=== PATIENT | female | born 1995 | race African-American/Black ===

== ENCOUNTER 2018-02-19 20:03 | Emergency (ER) | payer SELFPAY ==
[2018-02-19 21:27] VITALS: TEMP 96.6; O2SAT 100
[2018-02-19 21:39] VITALS: BP 109/71; PULSE 92; RESP 16
== END 2018-02-19 21:13 | disposition home or self-care (01) | DRG 951 ==
LOC: ED 20:03
DX: Z33.1 Pregnant state, incidental (principal); W10.9XXA Fall (on) (from) unspecified stairs and steps, initial encounter; Z3A.24 24 weeks gestation of pregnancy
CPT/HCPCS: 99282

== ENCOUNTER 2018-04-16 11:55 | Emergency (ER) | payer SELFPAY ==
[2018-04-16 11:56] VITALS: O2SAT 100
[2018-04-16] MEDS ORDERED: SODIUM CHLORIDE 0.9% 1000ML 1,000 ML IV ONE (12:35)
[2018-04-16] MEDS ORDERED: ONDANSETRON HCL 4 MG/2 ML SOL IV ONE (12:36)
[2018-04-16] MEDS ORDERED: ATROPINE 0.4 MG/ML SOL IV ONE (12:37)
[2018-04-16 12:44] LABS: BASOPHILS % (AUTO) 0 % (0-3); EOSINOPHILS % (AUTO) 0 % (0-9); HEMATOCRIT 29 % (35-47); HEMOGLOBIN 9.5 gm/dl (12.0-15.5); LYMPHOCYTES % (AUTO) 16.8 % (10-50); MEAN CORPUSCULAR VOLUME 85 fL (81-99); MONOCYTES % (AUTO) 5.1 % (0-12); NEUTROPHILS % (AUTO) 77.3 % (37-80)
[2018-04-16] MEDS ORDERED: ONDANSETRON HCL 4 MG/2 ML SOL ONE (12:52)
[2018-04-16] MEDS ORDERED: ATROPINE 0.1 MG/ML SOL ONE (12:57)
[2018-04-16 12:59] LABS: ALBUMIN 2.7 gm/dl (3.4-5.0); BILIRUBIN,TOTAL 0.4 mg/dl (0.2-1.0); CARBON DIOXIDE 22.4 mEq/L (21-32); CREATININE 0.63 mg/dl (0.60-1.00); POTASSIUM 3.6 mMol/L (3.5-5.1); TOTAL PROTEIN 6.8 gm/dl (6.4-8.2)
[2018-04-16 13:17] VITALS: TEMP 96.4
[2018-04-16 14:45] LABS: APPEARANCE,URINE Clear; BILIRUBIN,URINE NEGATIVE (NEGATIVE); COLOR,URINE Dark yellow; GLUCOSE, URINE (UA) NEGATIVE (NEGATIVE); KETONES,URINE NEGATIVE (NEGATIVE); LEUKOCYTE ESTERASE ,URINE TRACE (NEGATIVE); NITRATE,URINE NEGATIVE (NEGATIVE); OCCULT BLOOD,URINE NEGATIVE (NEG-TRACE); PH,URINE 6.5
[2018-04-16 14:50] LABS: RBC,URINE 0-2 (0-3AV/HPF)
[2018-04-16 14:51] LABS: BACTERIA 1+ (< 1+); CRYSTALS NEGATIVE (0-3 AVE/HPF)
[2018-04-16 15:24] VITALS: BP 111/70; PULSE 80; RESP 16
== END 2018-04-16 15:18 | disposition home or self-care (01) | DRG 392 ==
LOC: ED 11:55
DX: A08.4 Viral intestinal infection, unspecified (principal)
CPT/HCPCS: 59025; 80053; 81001; 85025; 87088; 96365; 96366; 96374; 96375; 99283; 99285; J0461; J2405

== ENCOUNTER 2018-06-04 23:36 | Inpatient (IN) | payer MEDICAID ==
[2018-06-04] MEDS ORDERED: MEPIVACAINE HCL 1% MPF 30 ML/VIAL SOL INFIL PRN (23:38)
[2018-06-04] MEDS ORDERED: SODIUM CHLORIDE 0.9% FLUSH 10 ML SOL IV PRN (23:38)
[2018-06-04] MEDS ORDERED: FENTANYL 100MCG/2ML SOL IV PRN (23:38)
[2018-06-04] MEDS ORDERED: CARBOPROST 250 MCG/ML SOL IM PRN (23:38)
[2018-06-04] MEDS ORDERED: OXYTOCIN 10000 MU/ML SOL IM PRN (23:38)
[2018-06-04] MEDS ORDERED: LACTATED RINGERS 1,000 ML IV PRN (23:38)
[2018-06-04] MEDS ORDERED: METHYLERGONOVINE MALEATE 0.2 MG/ML SOL IM PRN (23:38)
[2018-06-04] MEDS ORDERED: AMPICILLIN 1 GM PDS 2 GM in SODIUM CHLORIDE 0.9% 100 ML 100 ML IV SCH (23:45)
[2018-06-04] MEDS ORDERED: SODIUM CHLORIDE 0.9% FLUSH 10 ML SOL IV SCH (23:45)
[2018-06-04 23:50] LABS: BASOPHILS % (AUTO) 0 % (0-3); EOSINOPHILS % (AUTO) 0 % (0-9); HEMATOCRIT 34 % (35-47); LYMPHOCYTES % (AUTO) 17.8 % (10-50); MEAN CORPUSCULAR HEMOGLOBIN 27.1 pg (27.0-32.0); MEAN CORPUSCULAR HGB CONC 32.4 gm/dl (32.0-36.0); MEAN CORPUSCULAR VOLUME 84 fL (81-99); MONOCYTES % (AUTO) 4.7 % (0-12); NEUTROPHILS % (AUTO) 76.9 % (37-80)
[2018-06-05] MEDS ORDERED: AMPICILLIN 1 GM PDS ONE
[2018-06-05] MEDS ORDERED: ONDANSETRON HCL 4 MG/2 ML SOL IV PRN (00:02)
[2018-06-05] MEDS ORDERED: AZITHROMYCIN 250 MG TAB PO ONE (00:19)
[2018-06-05] MEDS ORDERED: SODIUM CHLORIDE 0.9% 500 ML 500 ML IV ONE (00:33)
[2018-06-05 00:37] LABS: AMPHETAMINES NEGATIVE (NEGATIVE); BARBITUATES NEGATIVE (NEGATIVE); BENZODIAZEPINES NEGATIVE (NEGATIVE); CANNABINOL(THC) POSITIVE (NEGATIVE); COCAINE(COC) NEGATIVE (NEGATIVE); METHADONE NEGATIVE (NEGATIVE); METHAMPHETAMINES NEGATIVE (NEGATIVE); OPIATES(OPI) NEGATIVE (NEGATIVE); OXYCODONE(OXY) NEGATIVE (NEGATIVE); PROPOXYPHENE(PPX) NEGATIVE (NEGATIVE); TRICYCLIC ANTIDEPRESSANTS NEGATIVE (NEGATIVE)
[2018-06-05] MEDS ORDERED: AZITHROMYCIN 250 MG TAB ONE (00:43)
[2018-06-05] MEDS ORDERED: DIPHENHYDRAMINE 50 MG/ML SOL IV PRN (00:55)
[2018-06-05] MEDS ORDERED: NALOXONE HYDROCHLORIDE 0.4 MG/ML SOL IV PRN (00:55)
[2018-06-05] MEDS ORDERED: NALBUPHINE HCL 20 MG/ML SOL IV PRN (00:55)
[2018-06-05] MEDS: LACTATED RINGERS 1,000 ML IV SCH ×2 (00:55→01:40)
[2018-06-05] MEDS ORDERED: EPHEDRINE SULFATE 50 MG/ML SOL IV PRN (00:55)
[2018-06-05] MEDS ORDERED: LACTATED RINGERS 1,000 ML IV SCH (01:00)
[2018-06-05] MEDS ORDERED: LIDOCAINE HCL 2% MPF 10 ML SOL ONE (01:16)
[2018-06-05 01:46] LABS: ABO B; ANTIBODY SCREEN Negative; RH TYPE Positive
[2018-06-05] MEDS ORDERED: FENTANYL 250 MCG/ 5ML SOL ONE (01:46)
[2018-06-05] MEDS ORDERED: ROPIVACAINE HYDROCHLORIDE 5 MG/ML SOL ONE (01:47)
[2018-06-05] MEDS ORDERED: BENZOCAINE/MENTHOL 1 SPR TOP PRN (03:04)
[2018-06-05] MEDS ORDERED: WITCH HAZEL 1 EA PAD TOP PRN (03:04)
[2018-06-05] MEDS ORDERED: TEMAZEPAM 15MG 15 MG CAP PO PRN (03:04)
[2018-06-05] MEDS ORDERED: BISACODYL 10 MG SUP PR PRN (03:04)
[2018-06-05] MEDS ORDERED: METHYLERGONOVINE MALEATE 0.2 MG TAB PO PRN (03:04)
[2018-06-05] MEDS ORDERED: FLEET ENEMA PR PRN (03:04)
[2018-06-05] MEDS: APAP/HYDROCODONE 1 EACH TABLET PO PRN ×2 (03:50→15:11)
[2018-06-05] MEDS ORDERED: AMPICILLIN 1 GM PDS 1 GM in SODIUM CHLORIDE 0.9% 100 ML 100 ML IV SCH (04:00)
[2018-06-05] MEDS: DOCUSATE SODIUM 100 MG SGL PO SCH ×2 (10:06→21:04)
[2018-06-05] MEDS: IBUPROFEN 600 MG TAB PO PRN (10:22)
[2018-06-05 11:42] LABS: *HEP B CORE AB TOTAL Negative (Negative); *HEPATITIS B SURG AG Negative (Negative); *HEPATITIS C ANTIBODY Negative (Negative)
[2018-06-05 12:44] LABS: *HEP B SURFACE AB Positive (Negative)
[2018-06-06] MEDS: APAP/HYDROCODONE 1 EACH TABLET PO PRN (00:40)
[2018-06-06] MEDS: DOCUSATE SODIUM 100 MG SGL PO SCH ×2 (09:19→09:20)
[2018-06-06 18:42] VITALS: BP 106/74; PULSE 69; RESP 18; TEMP 97.8; O2SAT 99
[2018-06-06] MEDS: IBUPROFEN 600 MG TAB PO PRN (19:01)
== END 2018-06-06 19:50 | disposition home or self-care (01) | DRG 806 ==
LOC: OBSVTOIN 23:36 → OB 23:36
PROVIDERS: ADMIT Family Medicine; ATTEND Family Medicine
PROC: 10E0XZZ Delivery of Products of Conception, External Approach (ICD-10-PCS; principal; 2018-05-26)
DX: O80 Encounter for full-term uncomplicated delivery (principal); O98.82 Other maternal infectious and parasitic diseases complicating childbirth; Z37.0 Single live birth; O42.013 Preterm premature rupture of membranes, onset of labor within 24 hours of rupture, third trimester; Z3A.38 38 weeks gestation of pregnancy; F12.90 Cannabis use, unspecified, uncomplicated; O69.81X0 Labor and delivery complicated by cord around neck, without compression, not applicable or unspecified
CPT/HCPCS: 36415; 59025; 80305; 85018; 85025; 86850; 86900; 86901; J0290; J0670; J2405; J2590; J2795; J3010; A9270-GY

== ENCOUNTER 2018-10-14 08:47 | Emergency (ER) | payer MEDICAID ==
[2018-10-14] MEDS ORDERED: KETOROLAC TROMETHAMINE 30 MG/ML SOL IM ONE (09:09)
[2018-10-14] MEDS ORDERED: KETOROLAC TROMETHAMINE 30 MG/ML SOL ONE (09:27)
[2018-10-14 09:29] VITALS: BP 134/78; PULSE 95; RESP 18; TEMP 96.7; O2SAT 100
== END 2018-10-14 10:17 | disposition home or self-care (01) | DRG 159 ==
LOC: ED 08:47
DX: K02.9 Dental caries, unspecified (principal); K05.30 Chronic periodontitis, unspecified
CPT/HCPCS: 84703; 96372; 99282; J1885

== ENCOUNTER 2019-01-18 17:01 | Emergency (ER) | payer MEDICAID, OTHER ==
[2019-01-18 17:02] VITALS: O2SAT 100
[2019-01-18 17:22] VITALS: RESP 18; TEMP 97.6
[2019-01-18 18:09] VITALS: BP 132/95; PULSE 82
== END 2019-01-18 18:02 | disposition home or self-care (01) | DRG 159 ==
LOC: ED 17:01
DX: K02.9 Dental caries, unspecified (principal)
CPT/HCPCS: 99282